=== PATIENT | male | born 1950 | race Caucasian/White ===

== ENCOUNTER 2019-06-18 15:26 | Inpatient (IN) | payer OTHER, MEDICARE ==
[~2019-06-18] VITALS: Ht 185.4 cm; Wt 91.4 kg
[2019-06-18] MEDS ORDERED: normal saline 1000ML IV soln IVB ONE (15:40)
[2019-06-18] MEDS ORDERED: metoprolol tartrate 1mg/ml inj IV ONE (15:40)
[2019-06-18 16:08] LABS: BASOPHILS % (AUTO) 0.5 % (0-1); EOSINOPHILS # (AUTO) 0.2 X10'3 (0-0.9); EOSINOPHILS % (AUTO) 2.1 % (0-6); HEMATOCRIT 43.1 % (42.0-52.0); HEMOGLOBIN 14.8 g/dl (14.0-17.9); LYMPHOCYTES # (AUTO) 2.3 X10'3 (1.1-4.8); LYMPHOCYTES % (AUTO) 30.8 % (21-51); MEAN CORPUSCULAR HEMOGLOBIN 31.9 PG (27.0-31.0); MEAN CORPUSCULAR HGB CONC 34.4 g/dL (33.0-36.5); MEAN CORPUSCULAR VOLUME 92.7 FL (78-98); MEAN PLATELET VOLUME 7.5 FL (7.4-10.4); MONOCYTES # (AUTO) 1.1 X10'3 (0-0.9); MONOCYTES % (AUTO) 14.4 % (2-12); NEUTROPHILS # (AUTO) 3.9 X10'3 (1.8-7.7); NEUTROPHILS % (AUTO) 52.2 % (42-75); PLATELET COUNT 278 X10'3 (140-440); RED BLOOD COUNT 4.65 X10'6 (4.70-6.10); RED CELL DISTRIBUTION WIDTH 12.9 % (11.5-14.5); WHITE BLOOD COUNT 7.5 X10'3 (4.5-11.0)
[2019-06-18 16:14] LABS: LACTIC SEPSIS 1.3 MMOL/L (0.4-2.0)
[2019-06-18 16:20] LABS: ALANINE AMINOTRANSFERASE 23 U/L (12-78); ALKALINE PHOSPHATASE 107 IU/L (46-116); ANION GAP 14 (8-16); ASPARTATE AMINO TRANSFERASE 18 U/L (10-37); BLOOD UREA NITROGEN 18 MG/DL (7-18); BUN/CREATININE RATIO 12.4 (5.4-32.0); CALCIUM 9.7 MG/DL (8.5-10.1); CHLORIDE 109 MMOL/L (99-107); CREATININE 1.45 MG/DL (0.60-1.10); GLUCOSE 112 MG/DL (70-104); POTASSIUM 3.4 MMOL/L (3.5-5.1); SODIUM 146 MMOL/L (135-145); TOTAL CARBON DIOXIDE 23.1 MMOL/L (24-32); TOTAL PROTEIN 7.9 G/DL (6.4-8.2); TROPONIN I < 0.04 NG/ML (0.0-0.05); eGFR 48 ML/MIN
--- NOTE | 2019-06-18 16:20 | NUR ---
called wants to be called if any changes name korywaqas stephenie [phone]
[2019-06-18 16:25] LABS: ETHANOL < 0.010 GM/DL (0.0-0.010)
--- NOTE | 2019-06-18 17:11 | NUR ---
called about pa saud wanting to admit pt
[2019-06-18] MEDS ORDERED: acetaminophen 325mg tablet PO PRN ×2 (17:50)
[2019-06-18] MEDS ORDERED: magnesium hydroxide 30ml (MOM) UD suspension PO PRN (17:50)
[2019-06-18] MEDS ORDERED: ondansetron/PF 4mg/2ml inj IV PRN (17:50)
[2019-06-18] MEDS ORDERED: HYDROcodone/acetaminophen 5mg/325mg tablet PO PRN (17:50)
[2019-06-18] MEDS ORDERED: metoclopramide 5 mg/ml inj IV PRN (17:50)
[2019-06-18] MEDS ORDERED: magnesium 2GM in 50ml NS 50 ML IV PRN (17:50)
[2019-06-18] MEDS ORDERED: cloNIDine 0.1 mg tablet PO ONE (17:50)
[2019-06-18] MEDS ORDERED: bisacodyl 10mg suppository rectal RC PRN (17:50)
[2019-06-18] MEDS ORDERED: acetaminophen 650mg rectal suppository RC PRN (17:50)
[2019-06-18] MEDS ORDERED: magnesium Cl slow-release 64mg tablet PO PRN (17:50)
[2019-06-18] MEDS ORDERED: potassium Cl 20 mEq SR tablet PO PRN ×2 (17:50)
[2019-06-18] MEDS ORDERED: potassium CL 10mEq/100ml bag 100 ML IV PRN ×2 (17:50)
[2019-06-18] MEDS ORDERED: magnesium 4gm in 100ml NS 100 ML IV PRN (17:50)
[2019-06-18] MEDS: K and/or MAG REPLACEMENT MC SCH (17:50)
[2019-06-18] MEDS ORDERED: mag hydrox/Alum hydrox/simeth 30ml oral suspension PO PRN (17:50)
[2019-06-18 18:33] LABS: HEMOGLOBIN A1C 5.5 % (4.5-6.2)
[2019-06-18 18:41] LABS: MAGNESIUM 1.7 MG/DL (1.5-2.4); PHOSPHORUS 2.9 MG/DL (2.3-4.5)
[2019-06-18] MEDS: dextrose 5%-1/2 normal saline 1,000 ML IV SCH (19:50)
[2019-06-18 20:46] LABS: CLARITY,URINE CLEAR (Clear); COLOR,URINE YELLOW (Yellow); GLUCOSE, URINE NEGATIVE (Neg); KETONES,URINE 40 mg/dl (Neg); LEUKOCYTE ESTERASE ,URINE NEGATIVE (Neg); NITRITES, URINE NEGATIVE (Neg); OCCULT BLOOD,URINE NEGATIVE (Neg); PH,URINE 5.5 (4.8-8.0); PROTEIN,URINE TRACE mg/dl (Neg); UROBILINOGEN,URINE 0.2 E.U/dL (0.2-1.0)
[2019-06-18 20:47] LABS: UA COLLECTION TYPE CLN CATCH MIDSTREAM
[2019-06-18 20:53] LABS: BACTERIA,URINE FEW /HPF (Neg); HYALINE CASTS 0-3 /LPF (NEGATIVE); MUCUS STRANDS MANY /LPF (Neg); RBC,URINE 0-2 /HPF (0-2); SQUAMOUS EPITHELIAL CELL,UR FEW /LPF (FEW); WBC,URINE 0-4 /HPF (0-4)
[2019-06-18 20:58] LABS: URINE AMPHETAMINE SCREEN POSITIVE (Neg); URINE BARBITUATE SCREEN NEGATIVE (Neg); URINE BENZODIAZEPINES SCREEN NEGATIVE (Neg); URINE CANNABINOID SCREEN NEGATIVE (Neg); URINE COCAINE SCREEN NEGATIVE (Neg); URINE METHADONE SCREEN NEGATIVE (Neg); URINE OPIATE SCREEN NEGATIVE (Neg); URINE PHENCYCLIDINE SCREEN NEGATIVE (Neg)
[2019-06-18] MEDS ORDERED: temazepam 15mg capsule PO PRN (21:00)
--- NOTE | 2019-06-18 21:10 | NUR ---
Patient in room [facility]. I have received report from Lokesh Sheriff Rn and had the opportunity to ask questions and will assume patient care upon arrival to the room..
[2019-06-18 21:20] VITALS: BP 162/114
--- NOTE | 2019-06-18 21:20 | NUR ---
pt arrived on gurney to the room from the Er and settled into bed.
--- NOTE | 2019-06-18 21:25 | NUR ---
pt called his on the phone with her listening to her concerns she is in [facility] outside of [place] and is unable to come here tomorrow she has stuff scheduled. her left to go [place] hunting. He has dementia and [facility] has him on Aricept for this a multivit and Prevacid antacid. she said this is the third time he has done this in nine months. he went hunting in [place] and ended up in the hospital there as she was driving there to get him they transferred him to another hospital. when he was there they did a tox screen on him and found meth in his system.she said he gets anxiety panics pulls over, will sit awhile and then drive back home usually.this is the second time he was hospitalized for the panic attack. she said she found his truck at a school parking lot somewhere between [facility] and she is looking into having it towed back to [place]. Stated she is unable to get here till Tuesday and would like to talk with the Dr. Son has already taken and locked up all of pt's guns except his shot gun. She said pt has a neurologist, and timothy Juan that have diagnosed dementia and depression on the pt. Told her we will have family welfare social work professor see him and will have charge master specialist in [place] see about them contacting her regarding recourses for her and confer with [place] in [place].
--- NOTE | 2019-06-18 22:30 | NUR ---
pt darted by Miya Murillo.
--- NOTE | 2019-06-18 23:35 | NUR ---
pt resting eyes closed without changes.
[2019-06-19] VITALS: BP 167/94
--- NOTE | 2019-06-19 01:30 | NUR ---
pt resting without changes.
--- NOTE | 2019-06-19 03:32 | NUR ---
pt resting eyes closed without s&s of distress.
--- NOTE | 2019-06-19 04:01 | NUR ---
resting without changes.
[2019-06-19 04:57] LABS: BASOPHILS % (AUTO) 0.6 % (0-1); EOSINOPHILS # (AUTO) 0.3 X10'3 (0-0.9); EOSINOPHILS % (AUTO) 4.9 % (0-6); HEMATOCRIT 39.4 % (42.0-52.0); HEMOGLOBIN 13.7 g/dl (14.0-17.9); LYMPHOCYTES # (AUTO) 2.1 X10'3 (1.1-4.8); LYMPHOCYTES % (AUTO) 31.1 % (21-51); MEAN CORPUSCULAR HEMOGLOBIN 31.7 PG (27.0-31.0); MEAN CORPUSCULAR HGB CONC 34.7 g/dL (33.0-36.5); MEAN CORPUSCULAR VOLUME 91.4 FL (78-98); MEAN PLATELET VOLUME 7.8 FL (7.4-10.4); NEUTROPHILS # (AUTO) 3.3 X10'3 (1.8-7.7); NEUTROPHILS % (AUTO) 48.4 % (42-75); PLATELET COUNT 249 X10'3 (140-440); RED BLOOD COUNT 4.31 X10'6 (4.70-6.10); RED CELL DISTRIBUTION WIDTH 13.1 % (11.5-14.5); WHITE BLOOD COUNT 6.9 X10'3 (4.5-11.0)
[2019-06-19 05:17] LABS: ALANINE AMINOTRANSFERASE 20 U/L (12-78); ALBUMIN 3.1 G/DL (3.4-5.0); ALBUMIN/GLOBULIN RATIO 0.9 (1.1-1.5); ALKALINE PHOSPHATASE 88 IU/L (46-116); ANION GAP 10 (8-16); ASPARTATE AMINO TRANSFERASE 14 U/L (10-37); BILIRUBIN,TOTAL 0.5 MG/DL (0.1-1.0); BLOOD UREA NITROGEN 16 MG/DL (7-18); BUN/CREATININE RATIO 13.1 (5.4-32.0); CALCIUM 8.5 MG/DL (8.5-10.1); CHLORIDE 112 MMOL/L (99-107); CHOL/HDL RATIO 3.7 (0.00-4.99); CHOLESTEROL 125 MG/DL (0-200); CREATININE 1.22 MG/DL (0.60-1.10); GLUCOSE 97 MG/DL (70-104); HDL CHOLESTEROL 34 MG/DL (35-60); LDL CHOLESTEROL 84 MG/DL (50-100); MAGNESIUM 1.8 MG/DL (1.5-2.4); POTASSIUM 3.7 MMOL/L (3.5-5.1); SODIUM 147 MMOL/L (135-145); TOTAL PROTEIN 6.4 G/DL (6.4-8.2); TRIGLYCERIDES 101 MG/DL (20-135); eGFR 59 ML/MIN
[2019-06-19] MEDS: dextrose 5%-1/2 normal saline 1,000 ML IV SCH ×2 (05:27→16:19)
--- NOTE | 2019-06-19 05:50 | NUR ---
Student documentation: I have reviewed and agree with all interventions, assessments performed and documented by JEMMA Morales RN STUDENT .Student Medication Administration: For this medication-pass time frame, all medication were reviewed, dispensed, administered and documented per hospital policy by JEMMA Morales. Addendum: 06/19/19 at 0551 by Sosa Houston RN Amended: Links added.
[2019-06-19 06:09] LABS: PLATELET ESTIMATE NORMAL; TOTAL CELLS COUNTED 100
--- NOTE | 2019-06-19 06:30 | NUR ---
Patient in room [facility]. I have received report from NANETTE Jacobson and had the opportunity to ask questions and assume patient care.
--- NOTE | 2019-06-19 06:30 | NUR ---
Patient in room [facility]. I have received report from Night nurses and had the opportunity to ask questions and assume patient care.
--- NOTE | 2019-06-19 06:45 | NUR ---
Problems reprioritized. Patient report given, questions answered & plan of care reviewed with KARINA FITZPATRICK. Addendum: 06/19/19 at 0654 by Sosa Houston RN Amended: Links added.
--- NOTE | 2019-06-19 06:58 | NUR ---
Patient in room [facility]. I have received report from NANETTE Swan and had the opportunity to ask questions and assume patient care.
[2019-06-19 07:00] VITALS: BP 145/76
[2019-06-19] MEDS: K and/or MAG REPLACEMENT MC SCH (07:45)
[2019-06-19] MEDS: enoxaparin 40mg/0.4ml syringe SUBCUT SCH (07:51)
[2019-06-19] MEDS ORDERED: FLU VACC QS2019-20 36MOS UP/PF 60 MCG/0.5 ML SYRINGE IMVAC ONE (10:00)
[2019-06-19] MEDS ORDERED: pneumococcal 23-VAL P-sac vacc 25 mcg/0.5ml vial IMVAC ONE (10:00)
[2019-06-19 11:00] VITALS: BP_SYST 151; BP_SYST 171; BP_DIAS 100; BP_DIAS 97
--- NOTE | 2019-06-19 11:52 | NUR ---
Problems reprioritized. Patient report given, questions answered & plan of care reviewed with Indira FITZPATRICK.
--- NOTE | 2019-06-19 11:53 | NUR ---
Problems reprioritized. Patient report given, questions answered & plan of care reviewed with NANETTE Jacobson.
--- NOTE | 2019-06-19 12:01 | NUR ---
Student documentation: I have reviewed and agree with all interventions, assessments performed and documented by Annita, community health nursing director.
--- NOTE | 2019-06-19 12:01 | NUR ---
Student Medication Administration: For this medication-pass time frame, all medication were reviewed, dispensed, administered and documented per hospital policy by opal Ariza.
[2019-06-19] MEDS ORDERED: MIRT15TA8 PO (12:02)
[2019-06-19] MEDS ORDERED: QUET100T33 PO (12:02)
[2019-06-19] MEDS ORDERED: DONE10TA7 PO (12:02)
[2019-06-19] MEDS ORDERED: OMEP-50 PO (12:02)
[2019-06-19 12:48] LABS: HIV ANTIBODY 1&2 RAPID NON-REACTIVE (Neg)
--- NOTE | 2019-06-19 18:31 | NUR ---
Problems reprioritized. Patient report given, questions answered & plan of care reviewed with NANETTE Webb.
[2019-06-19 20:00] VITALS: BP 139/82
--- NOTE | 2019-06-19 21:54 | NUR ---
Patient in room [facility]. I have received report from NANETTE Jacobson and had the opportunity to ask questions and assume patient care. Addendum: 06/19/19 at 2155 by Mechelle Bolden RN Amended: Links added.
[2019-06-20 00:21] VITALS: BP 127/77
[2019-06-20 05:04] LABS: BASOPHILS % (AUTO) 0.5 % (0-1); EOSINOPHILS # (AUTO) 0.4 X10'3 (0-0.9); EOSINOPHILS % (AUTO) 5.3 % (0-6); HEMATOCRIT 39.2 % (42.0-52.0); HEMOGLOBIN 13.4 g/dl (14.0-17.9); LYMPHOCYTES % (AUTO) 26.9 % (21-51); MEAN CORPUSCULAR HEMOGLOBIN 31.8 PG (27.0-31.0); MEAN CORPUSCULAR HGB CONC 34.2 g/dL (33.0-36.5); MEAN CORPUSCULAR VOLUME 93.1 FL (78-98); MEAN PLATELET VOLUME 7.7 FL (7.4-10.4); MONOCYTES # (AUTO) 1.1 X10'3 (0-0.9); MONOCYTES % (AUTO) 14.6 % (2-12); NEUTROPHILS % (AUTO) 52.7 % (42-75); PLATELET COUNT 221 X10'3 (140-440); RED CELL DISTRIBUTION WIDTH 12.9 % (11.5-14.5); WHITE BLOOD COUNT 7.5 X10'3 (4.5-11.0)
[2019-06-20 05:30] LABS: ALANINE AMINOTRANSFERASE 18 U/L (12-78); ALBUMIN 2.9 G/DL (3.4-5.0); ALBUMIN/GLOBULIN RATIO 0.9 (1.1-1.5); ALKALINE PHOSPHATASE 86 IU/L (46-116); ANION GAP 7 (8-16); ASPARTATE AMINO TRANSFERASE 15 U/L (10-37); BILIRUBIN,TOTAL 0.5 MG/DL (0.1-1.0); BLOOD UREA NITROGEN 13 MG/DL (7-18); BUN/CREATININE RATIO 11.3 (5.4-32.0); CHLORIDE 109 MMOL/L (99-107); CREATININE 1.15 MG/DL (0.60-1.10); GLUCOSE 97 MG/DL (70-104); MAGNESIUM 1.7 MG/DL (1.5-2.4); PHOSPHORUS 3.6 MG/DL (2.3-4.5); POTASSIUM 3.8 MMOL/L (3.5-5.1); SODIUM 142 MMOL/L (135-145); TOTAL CARBON DIOXIDE 25.8 MMOL/L (24-32); TOTAL PROTEIN 6.3 G/DL (6.4-8.2); eGFR 63 ML/MIN
--- NOTE | 2019-06-20 06:04 | NUR ---
Problems reprioritized. Patient report given, questions answered & plan of care reviewed with NANETTE Jacobson. Addendum: 06/20/19 at 0604 by Mechelle Bolden RN Amended: Links added.
--- NOTE | 2019-06-20 06:15 | NUR ---
Patient in room [facility]. I have received report from NANETTE Min and had the opportunity to ask questions and assume patient care.
[2019-06-20 07:00] VITALS: BP 122/69
[2019-06-20] MEDS: dextrose 5%-1/2 normal saline 1,000 ML IV SCH ×2 (07:35→09:48)
[2019-06-20] MEDS: K and/or MAG REPLACEMENT MC SCH (07:35)
[2019-06-20] MEDS: enoxaparin 40mg/0.4ml syringe SUBCUT SCH (08:08)
[2019-06-20] MEDS ORDERED: FLU VACC QS2019-20 36MOS UP/PF 60 MCG/0.5 ML SYRINGE IMVAC ONE (10:00)
[2019-06-20 11:35] VITALS: BP 132/84
[2019-06-20] MEDS ORDERED: pneumococcal 23-VAL P-sac vacc 25 mcg/0.5ml vial IMVAC ONE (11:35)
[2019-06-20 12:06] LABS: HBSAG SCREEN Negative (Negative); HEP A AB, IGM Negative (Negative); HEP B CORE AB, IGM Negative (Negative); HEPATITIS C ANTIBODY 0.1 s/co ratio (0.0-0.9); RPR Non Reactive (Non Reactive)
[2019-06-20] MEDS ORDERED: LORA-268 PO (12:07)
--- NOTE | 2019-06-20 13:06 | NUR ---
Patient discharge home via and taken from unit via ambulation with x1 staff. PIV removed with cannula intact. Tele monitor removed and returned to the desk, tele chambers notified. Patient alert and in no apparent distress at time of discharge. Discharge instructions given to patient and . Patient strongly encouraged to stop using meth and to seek possible inpatient psychiatric care to help get a better handle in his depression. Patient stated an understanding but was not convinced that the meth is contributing to his mental issues. Patient spouse stated that she agrees with the doctors recommendations and will try to have an open discussion with her about seeking help. Patient was given a prescription for Ativan. Patient stated that there were going to take an Uber to go and pick up attendant the patients truck.
== END 2019-06-20 12:50 | disposition home or self-care (01) | DRG 71 ==
LOC: ER 15:27 → SUR 3N 19:28 → CMPBEDREQ 21:43
PROVIDERS: ADMIT Family Medicine; ATTEND Family Medicine
PROC: 3E0234Z Introduction of Serum, Toxoid and Vaccine into Muscle, Percutaneous Approach (ICD-10-PCS; principal; 2019-06-19)
DX: G93.41 Metabolic encephalopathy (principal); E87.1 Hypo-osmolality and hyponatremia; E86.0 Dehydration; F32.9 Major depressive disorder, single episode, unspecified; F44.89 Other dissociative and conversion disorders; E87.6 Hypokalemia; F15.10 Other stimulant abuse, uncomplicated; F41.0 Panic disorder [episodic paroxysmal anxiety]; I12.9 Hypertensive chronic kidney disease with stage 1 through stage 4 chronic kidney disease, or unspecified chronic kidney disease; N18.9 Chronic kidney disease, unspecified; Z23 Encounter for immunization; Z88.0 Allergy status to penicillin
CPT/HCPCS: 36415; 70450; 70544; 70551; 71045; 80053; 80061; 80074; 80305; 80320; 81001; 82140; 82948; 83036; 83605; 83735; 84100; 84443; 84484; 85025; 86592; 86703; 87040; 87081; 93005; 93880; 96361; 96374; 99285; G0378; J1650; J3490; Q2037